=== PATIENT | male | born 2005 | race Caucasian/White ===

== ENCOUNTER 2024-01-08 02:48 | Emergency (ER) | payer BC, SELFPAY ==
[2024-01-08 02:56] VITALS: BP 132/81; PULSE 67; RESP 16; TEMP 36.7; O2SAT 98; BMI 32.7
--- NOTE | 2024-01-08 03:25 | ED_ITS ---
HPI - General Adult General Chief complaint: Laceration/Wound Stated complaint: left thumb lac Time Seen by Provider: 01/08/24 02:56 Source: patient Mode of arrival: ambulatory Limitations: no limitations History of Present Illness HPI narrative: 18-year-old male sliced his left thumb while using an [employer] knife to try to pry apart a small electronic object. Unknown last tetanus. Does not use blood thinners. No movement or sensory deficits in hand or wrist, no other areas of injury. Concerned that the slice does go diagonally through the nail. Bleeding has been minimal. Has not taken any medication to help with pain. States that his past medical history is benign, no major long-term health problems. No allergies. ROS is negative for other musculoskeletal, skin generalized or neurological changes. Related Data Home Medications ?Medication ?Instructions ?Recorded ?Confirmed No Known Home Medications 01/08/24 01/08/24 Allergies Allergy/AdvReac Type Severity Reaction Status Date / Time No Known Drug Allergies Allergy Verified 01/08/24 02:59 Exam Const: Vital Signs, click to edit/add: Vital Signs - 24 hr 01/08/24 02:56 Temperature 98.0 F Pulse Rate [Pulse Oximeter] 67 Respiratory Rate 16 Blood Pressure [Ri ght Upper Arm] 132/81 Pulse Oximetry 98 Oxygen Delivery Me thod Room Air Common normals: no apparent distress General appearance: cooperative, comfortable and well kempt HENMT: Common normals: normocephalic Head and scalp: normocephalic Face and sinus: normal facial exam Eye: General eye: normal appearance of both eyes Neck & C-Spine: General: normal visual inspection Resp: Common normals: normal respiratory effort Effort & inspection: able to speak in complete sentences Cardio: Other: Normal radial pulses on left. Regular rate and rhythm Extremity: Other: Both hands and wrist have normal range of motion. No movement or strength deficits. Thumb moves in all directions with good strength. No weakness. Normal sensation. There is a 2 cm long laceration from the lateral thumb distal phalanx running diagonally across the mid nail. Dermal depth with no underlying structures affected. Oozing minimally. Wound gapes only slightly on the skin portion, not the nail. Nail matrix not affected. Psych: Appearance: well kempt Activity/motor behavior: appropriate eye contact Mood and affect: euthymic mood Skin: Narrative: Other than the small laceration on the thumb, no other areas of injury. Course Course ED Course: Patient counseled on laceration and nail. Unfortunately there is not much that can be done for the nail, it will need to grow out. Counseled that he could benefit from a sales agent business services over the top of the nail as this will help reduce the chance of the nail catching on objects, clothing and snagging away. Recommended Steri-Strips to the skin. He was agreeable to this. Uncertain of last tetanus shot, will update this today. Procedure: Laceration repair: Dermabond was applied to the splint area of nail is a sales agent business services to help reduce splintering. No signs of underlying hematoma. Area of the skin was then cleansed with alcohol wipe and Mastisol supplied. Steri-Strip was then used to reinforce reapproximate skin edges with good cosmetic closure and hemostasis. Counseled on wound care. Unlikely to develop infection, alarm symptoms reviewed and discussed. Nail will need to grow out, proper care discussed. Will take several months. Okay to use Tylenol and/or ibuprofen as needed for discomfort. ED or primary care follow-up as needed only. Vital Signs Vital signs: Initial Vital Signs Temperature 98.0 F 01/08/24 02:56 Temperature Source Temporal Artery Scan 01/08/24 02:56 Pulse Rate 67 01/08/24 02:56 Pulse Rhythm Regular 01/08/24 02:56 Respiratory Rate 16 01/08/24 02:56 Blood Pressure 132/81 01/08/24 02:56 Blood Pressure Mean 98 01/08/24 02:56 Blood Pressure Position Supine 01/08/24 02:56 Pulse Oximetry 98 01/08/24 02:56 Oxygen Delivery Method Room Air 01/08/24 02:56 Vital Signs Temperature 98.0 F 01/08/24 02:56 Pulse Rate 67 01/08/24 02:56 Respiratory Rate 16 01/08/24 02:56 Blood Pressure 132/81 01/08/24 02:56 Pulse Oximetry 98 01/08/24 02:56 Oxygen Delivery Method Room Air 01/08/24 02:56 Temperature 98.0 F 01/08/24 02:56 Pulse Rate 67 01/08/24 02:56 Respiratory Rate 16 01/08/24 02:56 Blood Pressure 132/81 01/08/24 02:56 Pulse Oximetry 98 01/08/24 02:56 Oxygen Delivery Method Room Air 01/08/24 02:56 Discharge Plan Discharge Clinical Impression: Laceration Patient Disposition: Home, Self-Care Condition: Stable Instructions: Finger Laceration (ED) Additional Instructions: As we discussed, the laceration through the nail will have to grow out. This will take actually about 6 months to completely heal. I do fear that as the nail grows, the cut flap may catch on things and lead to tearing away of the nail. Because of this, please keep the nail tightly trimmed to the edge of the skin to reduce catching. It is okay to keep a layer of super glue or other sales agent business services over the cut as the nail grows out. This may help reduce tearing. You may lose the lower flap 1st. Ultimately, the nail will just have to grow out. You should have a new nail grow in without complication after several mon ths. The Steri-Strips will be completely dry in about an hour and after that they are able to get wet. Aggressive scrubbing may remove them to soon so try to be gentle. You do not need to apply any antibiotic ointment or other treatments over the strip. This will fall off and peel gradually on its own over the next few days. If they stay on for more than 5 days, you may gently peel them away. Your tetanus shot is updated today and will need to be renewed in 10 years. It is okay to use Tylenol 1000 mg every 6 hours and or ibuprofen 600 mg every 6 hours as needed for pain. Infection is unlikely but if you noticed increased pain, redness and swelling, you should have this evaluated in the clinic. Activity Level: No Restrictions Discharge Diet: Regular Prescriptions: No Action No Known Home Medications Stand Alone Forms: [facility] Info Instructions
== END 2024-01-08 03:50 | disposition home or self-care (01) ==
LOC: ED 03:27
PROVIDERS: Emergency Provider Family Medicine
DX: S61.012A Laceration without foreign body of left thumb without damage to nail, initial encounter (principal); W26.0XXA Contact with knife, initial encounter
CPT/HCPCS: 12001; 90471; 90714; 99283

== ENCOUNTER 2025-05-11 17:50 | Emergency (ER) | payer MEDICAID, SELFPAY ==
[2025-05-11] VITALS (13 sets, daily range): BP systolic 119–140; BP diastolic 62–95; PULSE 78–99; RESP 18–20; TEMP 36.7–37.2; O2SAT 94–99; BMI 37.5
--- NOTE | 2025-05-11 18:06 | ED.GENADULT ---
HPI - General Adult General Time Seen by Provider: 18:06 Date Seen: 05/11/25 Chief complaint: Flank Pain Stated complaint: pain in Testicle Time Seen by Provider: 05/11/25 18:06 Source: patient, RN notes reviewed and old records reviewed Mode of arrival: ambulatory Limitations: no limitations History of Present Illness HPI narrative: Russel is a very pleasant 19-year-old male previously healthy not currently on any medications who comes to the emergency room with sudden onset of testicular and left lower quadrant pain at approximately 5-530 p.m.. States he was just sitting down to place him cards. He has never felt this pain in the past. Has not had kidney stones in the past. This is associated with diaphoresis and feeling hot but no obvious fever. Has noted that his urine has looked a little rust colored but he denies any dysuria hematuria or urinary urgency. He has had vomiting associated with this. No diarrhea. No family history of kidney stones. Russel's accompanied by his dad is very supportive. Related Data Previous Rx's ?Medication ?Instructions ?Recorded tamsulosin 0.4 mg capsule (Flomax) 0.4 mg PO QHS #10 caps 05/11/25 Allergies Allergy/AdvReac Type Severity Reaction Status Date / Time No Known Drug Allergies Allergy Verified 01/08/24 02:59 Review of Systems Status of ROS: Reports: 10 or more systems reviewed and unremarkable except as noted in History and below Const: Denies: fever, chills or fatigue Eyes: Denies: change in vision ENMT: Denies: throat pain or nasal congestion Cardio: Reports: lightheadedness; Denies: chest pain or shortness of breath with exertion Resp: Denies: shortness of breath or cough GI: Reports: abdominal pain, nausea and vomiting; Denies: diarrhea or constipation : Denies: painful urination, urinary frequency, urinary urgency or blood in urine Musculo: Denies: back pain Endo: Denies: fatigue Exam Narrative: Exam Narrative: alert and oriented. Somewhat pale in appearance. Diaphoretic. External ears eyes nose clear. Heart with regular rate and rhythm and lungs are clear. Abdomen shows tenderness left lower quadrant. He has no CVA tenderness with percussion. He does have pain with palpation over the left testicle. No bulging in the groin. No unusual skin appearance. Moving all extremities. Const: Vital Signs, click to edit/add: Vital Signs - 24 hr 05/11/25 17:59 05/11/25 18:34 05/11/25 19:11 Temperature 98.9 F 98.0 F Pulse Rate 81 Pulse Rate [Pulse Oximeter] 95 Respiratory Rate 20 18 Blood Pressure 138/84 Blood Pressure [Ri ght Upper Arm] 133/95 H Pulse Oximetry 99 97 94 Oxygen Delivery Me thod Room Air 05/11/25 19:31 05/11/25 19:35 05/11/25 20:31 Temperature 98.0 F Pulse Rate 78 88 Pulse Rate [Pulse Oximeter] Respiratory Rate 18 18 Blood Pressure 140/83 H 127/79 Blood Pressure [Ri ght Upper Arm] Pulse Oximetry 96 98 Oxygen Delivery Me thod 05/11/25 21:01 05/11/25 21:32 05/11/25 22:02 Temperature Pulse Rate 86 89 83 Pulse Rate [Pulse Oximeter] Respiratory Rate 18 18 Blood Pressure 125/80 133/72 119/78 Blood Pressure [Ri ght Upper Arm] Pulse Oximetry 99 98 98 Oxygen Delivery Me thod 05/11/25 22:31 05/11/25 23:02 05/11/25 23:07 Temperature 98.0 F 98.0 F Pulse Rate 99 96 Pulse Rate [Pulse Oximeter] 85 Respiratory Rate 18 18 18 Blood Pressure 119/62 133/77 Blood Pressure [Ri ght Upper Arm] 125/74 Pulse Oximetry 96 97 97 Oxygen Delivery Me thod Room Air 05/11/25 23:38 Temperature 98.0 F Pulse Rate Pulse Rate [Pulse Oximeter] 85 Respiratory Rate 18 Blood Pressure Blood Pressure [Ri ght Upper Arm] 125/74 Pulse Oximetry Oxygen Delivery Me thod Documenting provider has reviewed patient's vital signs: yes Course Course ED Course: Differential diagnosis includes but is not limited to kidney stone, testicular torsion, internal hernia, diverticulitis unlikely given the sudden onset but should be considered. Must also consider vascular dissection and abnormalities. Given the times sensitive nature of testicular torsion for urological consultation will start with the ultrasound of the testicle. I have contacted Radiology. Patient will also receive Toradol 15 mg IV, Zofran 4 mg IV and normal saline 500 mL IV. Reevaluation(s) Reevaluation #1: Edgard is continued to have discomfort and thus have ordered 4 mg of IV morphine. Reevaluation #2: Patient noted to have continued discomfort he is given Ativan 0.5 mg. Addendum contacted that he is retching again and he is given Reglan 10 mg IV piggyback which greatly helps. Ultrasound of the left testicle normal. Will have a CT of chest abdomen and pelvis given unusual history. Certainly this still could be a kidney stone but would want further examination of the aorta, renal artery and abdomen. Vital Signs Vital signs: Initial Vital Signs Temperature 98.9 F 05/11/25 17:59 Temperature Source Temporal Artery Scan 05/11/25 17:59 Pulse Rate 95 05/11/25 17:59 Respiratory Rate 20 05/11/25 17:59 Blood Pressure 133/95 H 05/11/25 17:59 Blood Pressure Mean 107 H 05/11/25 17:59 Pulse Oximetry 99 05/11/25 17:59 Oxygen Delivery Method Room Air 05/11/25 17:59 Vital Signs Temperature 98.9 F 05/11/25 17:59 Pulse Rate 95 05/11/25 17:59 Respiratory Rate 20 05/11/25 17:59 Blood Pressure 133/95 H 05/11/25 17:59 Pulse Oximetry 99 05/11/25 17:59 Oxygen Delivery Method Room Air 05/11/25 17:59 Temperature 98.0 F 05/11/25 23:38 Pulse Rate 85 05/11/25 23:38 Respiratory Rate 18 05/11/25 23:38 Blood Pressure 125/74 05/11/25 23:38 Pulse Oximetry 97 05/11/25 23:07 Oxygen Delivery Method Room Air 05/11/25 23:07 Medications Administered Medications: Discontinued Medications Generic Name Dose Route Start Last Admin Trade Name Freq PRN Reason Stop Dose Admin Sodium Chloride 500 mls @ 500 mls/hr 05/11/25 18:07 05/11/25 19:04 0.9 % Sodium Chloride 500 Ml IV 05/11/25 19:06 Infused .Q1H SURESH Infusion Diphenhydramine HCl 25 mg/ 100.5 mls @ 301.5 mls/hr 05/11/25 19:59 05/11/25 20:22 Sodium Chloride IVPB 05/11/25 20:00 Infused ONCE ONE Infusion Metoclopramide HCl 10 mg/ 102 mls @ 306 mls/hr 05/11/25 19:59 05/11/25 20:22 Sodium Chloride IVPB 05/11/25 20:00 Infused ONCE ONE Infusion Ketorolac Tromethamine 15 mg 05/11/25 18:07 05/11/25 18:22 Ketorolac 15 Mg/Ml Inj IVP 05/11/25 18:08 15 mg ONCE ONE Administration Lorazepam 0.5 mg 05/11/25 18:54 05/11/25 19:00 Lorazepam 2 Mg/Ml Inj IVP 05/11/25 18:55 0.5 mg ONCE ONE Administration Morphine Sulfate 4 mg 05/11/25 18:28 05/11/25 18:31 Morphine 4 Mg/Ml Inj IVP 05/11/25 18:29 4 mg ONCE ONE Administration Ondansetron HCl 4 mg 05/11/25 18:07 05/11/25 18:22 Ondansetron 2 Mg/Ml Inj IVP 05/11/25 18:08 4 mg ONCE ONE Administration Medical Decision Making MDM Narrative Medical decision making narrative: 1. Nephrolithiasis-4 x 3 mm stone noted in the proximal left ureter. Patient much more comfortable but did need many medications including Toradol, Zofran, morphine, Ativan, Reglan in order to get comfortable. He has been resting here at this time after his CT. Will discharge him home he will need to strain his urine. He will use Toradol 10 mg p.o. t.i.d. p.r.n. 20. With no refills from [facility] for pain. Will also give him [place] 5/325 1-2 tabs p.o. q.4-6 hours p.r.n. pain not relieved by Toradol 20. With no refills by [facility]. Finally will give him Zofran 4 mg ODT T q.8 hours p.r.n. nausea 10. With no refills. Flomax 0.4 mg given here in the ED tonight. A prescription for ten more days sent to his pharmacy in the hopes that this medicine would help expedite the passage of this stone. At this time patient has no evidence of sepsis, fever. 2. Left testicular pain-improved at this time. No evidence of torsion or abnormality noted on the ultrasound. 3. Disposition-home at this time. Did discuss discharge instructions with both Russel and his dad. Would have them return for worsening symptoms. For ongoing pain that is relieved by medication but continuing would have them follow-up with their primary MD in order to help them with urological consultation. Return for fever, vomiting, worsening symptoms and as needed. Medical Records Medical records reviewed: Yes I reviewed the patient's medical records Imaging Data Scrotal ultrasound: Attestation: I have reviewed the pertinent imaging results. My impression: Left-sided ureteral stone Radiologist's impression: Cardiovascular structures: Heart size is normal. Thoracic aorta and main pulmonary artery are normal in caliber. No filling defects in the central pulmonary vasculature. Mediastinum and bradley: No mass or adenopathy. Small amount of residual thymic tissue which is age compatible. Small hiatal hernia. Lungs and pleura: Lungs and pleural spaces are clear. No suspicious nodules, infiltrates, or effusions. Chest wall and axilla: No mass or adenopathy. Bones: No suspicious bone lesions. Unremarkable for age. ABDOMEN AND PELVIS: Liver: Non cirrhotic morphology. No suspicious mass.. Gallbladder and bile ducts: Unremarkable. Pancreas: Unremarkable. Spleen: Unremarkable. Adrenal glands: Unremarkable. Kidneys: Mild left-sided hydroureteronephrosis with obstructive nephrolith in the proximal ureter measuring 4 x 3 mm (7/95, 8/68). No right-sided hydronephrosis. No perinephric fat stranding. No suspicious mass. No additional nephrolithiasis bilaterally. GI tract: Stomach is decompressed, limiting evaluation, but appears grossly normal. Small and large bowel is normal in caliber without obstruction. Normal appendix (7/112). No pneumatosis, pneumoperitoneum or portal venous gas. Vascular structures: Unremarkable. Lymph nodes: Unremarkable. Peritoneum/Retroperitoneum/Abdominal Wall: Tiny fat containing umbilical hernia. No free air or significant free fluid. Pelvic Organs: Unremarkable. Bones and superficial soft tissues: No suspicious bone lesions. Unremarkable for age. IMPRESSION: 1. Mild left-sided hydroureteronephrosis with obstructive nephrolith in the proximal ureter measuring 4 x 3 mm. 2. No acute pathology in the chest. Discharge Plan Discharge Clinical Impression: Left nephrolithiasis, Colic, ureteral, Vomiting Patient Disposition: Home, Self-Care Condition: Improved Additional Instructions: Toradol may be used for discomfort 1 tablet every 6-8 hours as needed. For pain not relieved by Toradol you may use [place] which is a combination medication of for a narcotic called hydrocodone and Tylenol. If using this medicine you should take a stool softener as it causes constipation. You should not take any additional Tylenol. Zofran is a medication that melt on the tongue and is used for nausea. Flomax is a soft muscle relaxer and is thought to help speed the passage of kidney stones. You received your 1st dose tonight. I have sent this medication to the pharmacy. All 3 of the previous medications were sent to our [employer] machine. Strain your urine. If you see a small stone and your feeling better, you have passed the stone. If, however, you develop pain not relieved by the above medications, you start vomiting and will not stop, you develop a fever you will need to seek medical attention. Otherwise if the pain is controlled but you have ongoing pain please follow-up with your primary MD this week so that they can arrange consultation with a urologist. Prescriptions: New tamsulosin [Flomax] 0.4 mg capsule 0.4 mg PO QHS Qty: 10 1RF Follow Up/Referrals: Provider,Not a Local [Primary Care Provider, Family Practice] Stand Alone Forms: [facility] Info Instructions
--- NOTE | 2025-05-11 18:13 | CRLHL7_ITS ---
For Patients: As a result of the Century Cures Act, medical imaging exams and procedure reports are released immediately into your electronic medical record. You may view this report before your referring provider. If you have questions, please contact your health care provider. INDICATION: Left testicular pain. COMPARISON: None. TECHNIQUE: Dukes scale imaging was performed of the scrotum. Color Doppler and spectral Doppler analysis was performed of the testes. FINDINGS: Testes: The right testis measures 6.5 x 2.5 x 5.1 cm and the left testis measures 6.1 x 2.8 x 3.5 cm. The testes demonstrate normal arterial and venous blood flow on color Doppler and spectral Doppler analysis. The testes have uniform echogenicity without evidence of a suspicious mass or area of inflammation. Epididymis: The epididymis appears normal bilaterally. No hypervascularity. Other: No significant hydrocele or varicocele. IMPRESSION: Unremarkable exam. No evidence of torsion or inflammation. Dictated by Rosalind Dunlap MD @ 05/11/2025 7:23:31 PM (Electronically Signed)
[2025-05-11] MEDS: ONDANSETRON 2 MG/ML inj 4 MG IVP (18:22)
[2025-05-11] MEDS: 0.9 % SODIUM CHLORIDE 500 ML 500 ML IV (18:22)
[2025-05-11] MEDS: MORPHINE 4 MG/ML INJ IVP (18:31)
--- NOTE | 2025-05-11 19:12 | CRLHL7_ITS ---
For Patients: As a result of the Century Cures Act, medical imaging exams and procedure reports are released immediately into your electronic medical record. You may view this report before your referring provider. If you have questions, please contact your health care provider. INDICATION: LLQ ABD PAIN, TESTICULAR PAIN. COUGH TECHNIQUE: CT chest, abdomen and pelvis acquired 143 cc Isovue 370 IV contrast. COMPARISON: Same day testicular ultrasound FINDINGS: CHEST: Cardiovascular structures: Heart size is normal. Thoracic aorta and main pulmonary artery are normal in caliber. No filling defects in the central pulmonary vasculature. Mediastinum and bradley: No mass or adenopathy. Small amount of residual thymic tissue which is age compatible. Small hiatal hernia. Lungs and pleura: Lungs and pleural spaces are clear. No suspicious nodules, infiltrates, or effusions. Chest wall and axilla: No mass or adenopathy. Bones: No suspicious bone lesions. Unremarkable for age. ABDOMEN AND PELVIS: Liver: Non cirrhotic morphology. No suspicious mass.. Gallbladder and bile ducts: Unremarkable. Pancreas: Unremarkable. Spleen: Unremarkable. Adrenal glands: Unremarkable. Kidneys: Mild left-sided hydroureteronephrosis with obstructive nephrolith in the proximal ureter measuring 4 x 3 mm (7/95, 8/). No right-sided hydronephrosis. No perinephric fat stranding. No suspicious mass. No additional nephrolithiasis bilaterally. GI tract: Stomach is decompressed, limiting evaluation, but appears grossly normal. Small and large bowel is normal in caliber without obstruction. Normal appendix (/112). No pneumatosis, pneumoperitoneum or portal venous gas. Vascular structures: Unremarkable. Lymph nodes: Unremarkable. Peritoneum/Retroperitoneum/Abdominal Wall: Tiny fat containing umbilical hernia. No free air or significant free fluid. Pelvic Organs: Unremarkable. Bones and superficial soft tissues: No suspicious bone lesions. Unremarkable for age. IMPRESSION: 1. Mild left-sided hydroureteronephrosis with obstructive nephrolith in the proximal ureter measuring 4 x 3 mm. 2. No acute pathology in the chest. Please note that all CT scans at this facility use dose modulation, iterative reconstruction, and/or weight-based dosing when appropriate to reduce radiation dose to as low as reasonably achievable. Dictated by Adriana Pavon MD @ 05/11/2025 8:34:50 PM (Electronically Signed)
[2025-05-11] MEDS: METOCLOPRAMIDE HCL 10 MG in 0.9 % SODIUM CHLORIDE 100 ml 100 ML 306 MG IVPB (20:04)
[2025-05-11] MEDS: diphenhydrAMINE 25 MG in 0.9 % SODIUM CHLORIDE 100 ml 100 ML 301.5 MG IVPB (20:04)
== END 2025-05-11 23:38 | disposition home or self-care (01) ==
PROVIDERS: Emergency Provider Family Medicine
DX: N20.2 Calculus of kidney with calculus of ureter (principal)
CPT/HCPCS: 71260; 74177; 76870; 81001; 93976; 94761; 96365; 96366; 96375; 99284; 99285; J1200; J1885; J2060; J2270; J2405; J2765; J7030; Q9967

== ENCOUNTER 2025-05-12 13:03 | Emergency (ER) | payer MEDICAID, SELFPAY ==
[2025-05-12] VITALS (14 sets, daily range): BP systolic 130–146; BP diastolic 88–96; PULSE 87–108; RESP 16–18; TEMP 36.7; O2SAT 93–99; BMI 37.4
--- NOTE | 2025-05-12 13:05 | ED_ITS ---
HPI - General Adult General Date Seen: 05/12/25 Chief complaint: Flank Pain Stated complaint: Pain killers not helping with kidney stones Time Seen by Provider: 05/12/25 13:04 History of Present Illness HPI narrative: 19-year-old gentleman returning to the ER today with flank pain. His prescription pain medications are not helping with his kidney stone. In review of his medical record he was seen yesterday on 05/11/[address] Silva here in the ER. He had sudden onset of left lower quadrant and left testicular pain at about 5:30 p.m. yesterday. He was afebrile. Blood pressure was 133/95. Oxygen was normal. Workup included a CT scan that showed mild left hydronephrosis with obstructive nephrolith in the proximal ureter measuring 4 x 3 mm. Prescribed Flomax, Toradol, Zofran, Valentine. This morning he started having more pain in his left flank and left lower quadrant (not as much pain in his testicle). He was at work and started to get dizzy and nauseous because of the pain. He took a Toradol and Valentine for pain but they really did not help at all. He took a Zofran for the nausea and that has improved. Since the oral pain killer just not helping with the pain, he came back to the ER He has not had any discharge urea, urgency, hematuria. No fever chills. No right-sided abdominal pain. No testicular pain or swelling. He has not noticed any bruising or rash or blisters on his side He is not on any other medications. Related Data Previous Rx's ?Medication ?Instructions ?Recorded tamsulosin 0.4 mg capsule (Flomax) 0.4 mg PO QHS #10 c aps 05/11/25 oxycodone-acetaminophen 5 mg-325 1 - 2 tab PO Q4-6H KS N pain #20 05/12/25 mg tablet (Percocet) tabs Allergies Allergy/AdvReac Type Severity Reaction Status Date / Time No Known Drug Allergies Allergy Verified 01/08/24 02:59 Exam Narrative: Exam Narrative: Constitutional: Appears well-developed and well-nourished. Alert. Conversant but uncomfortable and holding his hand against his left flank and sometimes lying sideways because of pain. Non toxic. HENT: Head: Atraumatic. Nose: Nose normal. Mouth/Throat: Oral mucosa is clear and moist. no trismus. Eyes: Conjunctivae normal. EOM normal. Pupils equal, round, and reactive to light. No scleral icterus. Neck: Normal range of motion. Neck supple. No tracheal deviation present. Cardiovascular: Normal rate, regular rhythm. No gallop. No friction rub. No murmur heard. Pulmonary/Chest: Effort normal. No stridor. No respiratory distress. No wheezes. No rales. No rhonchi . No ribcage tenderness. Abdominal: Soft. Bowel sounds normal. No distension. No mass. left upper quadrant, left lower quadrant, left CVA tenderness. No rebound. No guarding. No right-sided tenderness. Musculoskeletal: RUE: Normal range of motion. No tenderness. No deformity LUE: Normal range of motion. No tenderness. No deformity RLE: Normal range of motion. No edema. No tenderness. No deformity LLE: Normal range of motion. No edema. No tenderness. No deformity Neurological: Alert and oriented to person, place, and time. Normal strength. CN II-VII intact. No sensory deficit. GCS eye subscore is 4. GCS verbal subscore is 5. GCS motor subscore is 6. Normal coordination Skin: Skin is warm and dry. No rash noted. No pallor. Normal capillary refill. Psychiatric: Normal mood. Normal affect, allowing for pain. Const: Vital Signs, click to edit/add: Vital Signs - 24 hr 05/12/25 13:15 05/12/25 13:45 05/12/25 14:03 Temperature 98.1 F Pulse Rate 87 89 Pulse Rate [Pulse Oximeter] 91 Respiratory Rate 18 Blood Pressure Blood Pressure [Ri t Upper Arm] 146/88 H Pulse Oximetry 96 93 96 Oxygen Delivery Me thod Room Air 05/12/25 14:15 05/12/25 14:30 05/12/25 14:45 Temperature Pulse Rate 90 104 H 98 Pulse Rate [Pulse Oximeter] Respiratory Rate 16 Blood Pressure Blood Pressure [Ri t Upper Arm] Pulse Oximetry 97 96 99 Oxygen Delivery Me thod 05/12/25 15:00 05/12/25 15:15 05/12/25 15:30 Temperature Pulse Rate 97 108 H 103 H Pulse Rate [Pulse Oximeter] Respiratory Rate 16 Blood Pressure Blood Pressure [Ri ght Upper Arm] Pulse Oximetry 96 96 96 Oxygen Delivery Me thod 05/12/25 15:45 05/12/25 15:55 05/12/25 16:00 Temperature Pulse Rate 108 H 108 H 107 H Pulse Rate [Pulse Oximeter] Respiratory Rate 16 Blood Pressure 130/96 H Blood Pressure [Ri [facility] Upper Arm] Pulse Oximetry 95 99 98 Oxygen Delivery Me thod 05/12/25 16:15 05/12/25 16:30 Temperature Pulse Rate 103 H 94 Pulse Rate [Pulse Oximeter] Respiratory Rate Blood Pressure Blood Pressure [[facility] Upper Arm] Pulse Oximetry 96 97 Oxygen Delivery Me thod Course Vital Signs Vital signs: Initial Vital Signs Temperature 98.1 F 05/12/25 13:15 Temperature Source Temporal Artery Scan 05/12/25 13:15 Pulse Rate 91 05/12/25 13:15 Respiratory Rate 18 05/12/25 13:15 Blood Pressure 146/88 H 05/12/25 13:15 Blood Pressure Mean 107 H 05/12/25 13:15 Blood Pressure Position Sitting 05/12/25 13:15 Pulse Oximetry 96 05/12/25 13:15 Oxygen Delivery Method Room Air 05/12/25 13:15 Vital Signs Temperature 98.1 F 05/12/25 13:15 Pulse Rate 91 05/12/25 13:15 Respiratory Rate 18 05/12/25 13:15 Blood Pressure 146/88 H 05/12/25 13:15 Pulse Oximetry 96 05/12/25 13:15 Oxygen Delivery Method Room Air 05/12/25 13:15 Temperature 98.1 F 05/12/25 13:15 Pulse Rate 94 05/12/25 16:30 Respiratory Rate 16 05/12/25 15:55 Blood Pressure 130/96 H 05/12/25 15:55 Pulse Oximetry 97 05/12/25 16:30 Oxygen Delivery Method Room Air 05/12/25 13:15 Medications Administered Medications: Discontinued Medications Generic Name Dose Route Start Last Admin Trade Name Freq PRN Reason Stop Dose Admin Hydromorphone HCl 0.5 mg 05/12/25 13:25 05/12/25 13:39 Hydromorphone 0.5 Mg/0.5 Ml Inj IVP 0.5 mg Q1H PRN Administration Pain Hydromorphone HCl 0.5 mg 05/12/25 15:42 05/12/25 15:54 Hydromorphone 0.5 Mg/0.5 Ml Inj IVP 0.5 mg Q1H PRN Administration Pain Ondansetron HCl 4 mg 05/12/25 13:25 05/12/25 13:39 Ondansetron 2 Mg/Ml Inj IVP 05/12/25 13:26 4 mg ONCE ONE Administration Oxycodone HCl 5 mg 05/12/25 15:42 05/12/25 15:54 Oxycodone 5 Mg Tablet PO 05/12/25 15:43 5 mg ONCE ONE Administration Medical Decision Making MDM Narrative Medical decision making narrative: This patient presents with left flank and left lower quadrant abdominal pain. Differential Diagnosis considered includes: Ureterolithiasis, UTI, pyelonephritis, AAA, colitis, diverticulitis, among others. At this point, the evaluation indicates that ureterolithiasis is the cause of the patient's symptoms. There are no signs that this is an infected stone. He does have leukocytosis but no evidence for pyuria or bacteriuria on urinalysis. Kidney function is normal. CT imaging yesterday confirm the presence of a 3 mm stone. He was not well controlled with Valentine yesterday but pain is much more well controlled today with Dilaudid and oxycodone given here in the ER. The patient is hemodynamically stable in ED. I think the patient is safe for discharge. The plan is discharge to home with recheck by primary care physician or urology.They will return to the ED right away if symptoms worsen (e.g Return immediately for fevers greater than 102, increasing pain, other new symptoms develop). Ureterolithiasis precautions for home. Prescriptions for pain control, Percocet. He already has Zofran nausea control, and flomax. The patient's questions were answered. Lab Data Labs: Lab Results 05/12/25 05/12/25 Range/Units 13:25 13:40 WBC 14.57 H (4.50-11.00) K/uL RBC 5.02 (4.30-5.90) m/uL Hgb 14.8 (13.5-17.5) gm/dL Hct 44.6 (37.0-53.0) % MCV 89 (80-100) fL MCH 30 (26-34) pg MCHC 33 (32-36) gm/dL RDW Coeff of Neil 12.6 (11.5-15.5) % Plt Count 255 (140-440) K/uL Neut % (Auto) 77.0 H (42.0-72.0) % Lymph % (Auto) 14.8 L (20-44) % Love % (Auto) 7.3 (0.0-11.0) % Eos % (Auto) 0.5 (0.0-7.0) % Baso % (Auto) 0.2 (0.0-3.0) % Neut # (Auto) 11.20 H (1.7-7.0) K/uL Lymph # (Auto) 2.20 (0.90-2.90) K/uL Love # (Auto) 1.10 H (0.00-0.90) K/UL Eos # (Auto) 0.10 (0.00-0.50) K/uL Baso # (Auto) 0.00 (0.00-0.30) K/uL Abs Immat Gran (auto) 0.00 (0.00-0.30) K/uL Imm/Tot Granulo (auto) 0.2 % Sodium 140 (135-149) mmol/L Potassium 3.6 (3.6-5.1) mmol/L Chloride 105 (96-114) mmol/L Carbon Dioxide 27 (20-32) mmol/L Anion Gap 8 (7-15) mEq/L BUN 11 (5-24) mg/dL Creatinine 1.0 (0.5-1.5) mg/dL Estimated Creat Clear 135.86 Estimated GFR 110 ml/min Glucose 106 (60-115) mg/dL Calcium 9.4 (8.4-10.6) mg/dL Urine Color Brown A (Yellow) Urine Appearance Cloudy A (Clear) Urine pH 6.0 (5.0-8.5) Ur Specific [place] 1.025 (1.000-1.030) Urine Protein 2+ A (Negative) Urine Glucose (UA) Negative (Negative) Urine Ketones Trace A (Negative) Urine Blood 3+ A (Negative) Urine Nitrite Negative (Negative) Urine Bilirubin 1+ A (Negative) Urine Urobilinogen 0.2 (0.2-1.0) Ur Leukocyte Esterase Negative (Negative) Urine RBC >100 A (0-2) Urine WBC 2-5 (0-5) Ur Squamous Epith Cells Few (None-Few) Other Sediment MODERATE RCB CLUMPS (None) Urine Bacteria Few A (None) Urine Mucus Many A (None) Discharge Plan Discharge Clinical Impression: Kidney stone on left side Patient Disposition: Home, Self-Care Condition: Stable Instructions: Kidney Stones (ED) Additional Instructions: As we discussed, please come back to the ER right away if you have any problems- especially have worsening or severe uncontrolled pain, fever or chills, uncontrolled vomiting. To help manage your pain from the kidney stone you can take the following steps. Continue to drink adequate amounts of fluids so that your producing normal amounts of urine in the ear urine is fairly clear or light yellow. You can use Tylenol or NSAIDs (either ibuprofen or Toradol, not both) for pain control. If the initial pain medications are not strong enough , use the prescription pain killer. We will give you a prescription for Percocet which is stronger than Valentine. Stop taking Valentine and take Percocet instead. Do not take them both together. Be careful with prescription pain killers because they can cause side effects such as dizziness, drowsiness, constipation, and can be addictive. It typically takes a few days for kidney stone to pass. If you not feeling dramatically better within 3-5 days, please recheck with your regular doctor or with a urologist. Unfortunately, there is not a urologist here in [place]. You can call [place] [facility], or [facility], or any urologist who is ?in network? with your insurance. Prescriptions: New oxycodone-acetaminophen [Percocet] 5-325 mg tablet 1 - 2 tab PO Q4-6H PRN (Reason: pain) Qty: 20 0RF No Action tamsulosin [Flomax] 0.4 mg capsule 0.4 mg PO QHS Qty: 10 1RF Follow Up/Referrals: Provider,Not a Local [Primary Care Provider, Family Practice] Stand Alone Forms: Work/School Release, [email or web address] Info Instructions
[2025-05-12] MEDS: ONDANSETRON 2 MG/ML inj 4 MG IVP (13:39)
[2025-05-12 13:48] LABS: Hematocrit* 44.6 % (37.0-53.0); Hemoglobin* 14.8 gm/dL (13.5-17.5); Immature Granulocytes Pct Auto 0.2 %; Mean Corpuscular HGB Conc 33 gm/dL (32-36); Mean Corpuscular Hemoglobin 30 pg (26-34); Mean Corpuscular Volume 89 fL (80-100); RDW Coefficient of Variation % 12.6 % (11.5-15.5); Red Blood Count* 5.02 m/uL (4.30-5.90); White Blood Count* 14.57 K/uL (4.50-11.00)
[2025-05-12 13:50] LABS: Immature Granulocytes Abs Auto 0.00 K/uL (0.00-0.30); Lymphocytes Absolute Auto 2.20 K/uL (0.90-2.90)
[2025-05-12 13:51] LABS: Slide Review Reflex No
[2025-05-12 14:03] LABS: Chloride* 105 mmol/L (96-114)
[2025-05-12 14:04] LABS: Potassium* 3.6 mmol/L (3.6-5.1); Sodium* 140 mmol/L (135-149)
[2025-05-12 14:07] LABS: Anion Gap 8 mEq/L (7-15); Blood Urea Nitrogen* 11 mg/dL (5-24); Calcium* 9.4 mg/dL (8.4-10.6); Carbon Dioxide* 27 mmol/L (20-32); Creatinine* 1.0 mg/dL (0.5-1.5); Est. Creatinine Clearance* 135.86; Estimated Glomerular Filt Rate 110 ml/min; Glucose* 106 mg/dL (60-115)
[2025-05-12 14:08] LABS: Appearance Urine Cloudy (Clear)
== END 2025-05-12 17:20 | disposition home or self-care (01) ==
PROVIDERS: Emergency Provider Emergency Medicine
DX: N20.0 Calculus of kidney (principal)
CPT/HCPCS: 36415; 80048; 81001; 85025; 87086; 94761; 96374; 96375; 96376; 99282; 99284; A9270; J1171; J2405

== ENCOUNTER 2025-05-21 20:33 | Emergency (ER) | payer MEDICAID, SELFPAY ==
--- OUTSIDE RECORDS SUMMARY | 2025-05-16 10:25 | XMS_ITS | Encounter Summary ---
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 Name Role Phone None Reported, Pcp Primary Care Provider Unavail able Reason for Referral * Outpatient (Routine) - Closed Specialty Diagnoses / Procedures Referred By Jessica gama Referred To Contact Urology Diagnoses Ureterolithiasis Pain Flank Luke Poole P.A.-CEulogio [address] [place] [phone] Phone: tel: fax: [facility] Referral ID Status Reason Start Date Expiration Date Visits Re quested Visits Authorized [id number] Closed 05/16/2025 11/15/2026 1 1 [facility] Reason for Visit * Reason Comments Flank Pain Encounter Details Date Type Department Care Team (Latest Contact Info) Description 05/16/2025 10:25 AM [facility] - 05/16/2025 3:44 PM [facility] Emergency [facility] [address] [place] [phone] Luke Poole, JesicaAEulogio-CEulogio [address] [place] [phone] Ureterolithiasis (Primary Dx); Pain Flank Discharge Disposition: Home or Self Care Social History Tobacco Use Types Packs/Day Years Used Date Smoking Tobacco: Never Tobacco Cessation:Counseling Given: Not Answered Alcohol Use Standard Drinks/Week Comments Never 0 (1 standard drink = 0.6 oz pur e alcohol) Sex and Gender Information Value Date Recorded Sex Assigned at Male 05/19/2025 1:42 PM [facility] Legal Sex Male 10:23 AM [facility] [employer] [facility] Gender Identity Male 05/19/2025 1:42 PM [facility] Sexual Orientation Bisexual 05/19/2025 1: 42 PM [facility] [employer] [facility] documented as of this encounter Last Filed Vital Signs Vital Sign Reading Time Taken Comments Blood Pressure 150/89 05/16/2025 3:42 PM [facility] [employer] [facility] Pulse 75 05/16/2025 3:42 PM [facility] [facility] [facility] Temperature 36.8 C (98.2 F) 05/16/2025 3:42 PM [facility] [employer] [facility] Respiratory Rate 16 05/16/2025 3:42 PM [facility] [employer] [facility] Oxygen Saturation 98% 05/16/2025 3:42 PM [facility] [employer] [facility] Inhaled Oxygen Concentration - - Weight 131 kg (288 lb 12.8 oz) 05/16/2025 10:27 AM [facility] [employer] [facility] Height 188 cm (6' 2) 05/16/2025 10:27 AM [facility] [facility] [employer] [facility] Body Mass Index 37.08 05/16/2025 10:27 AM [facility] [employer] [facility] documented in this encounter Discharge Instructions * Discharge Instructions* Luke Poole P.A.-C. - 05/16/2025 2:02 PM [facility] [employer] [facility] Tylenol 1000 mg every 8 hours as needed for pain. Ibuprofen 600 mg every 8 hours as needed for pain. Please take with food. Do not exceed 3000 mg of Tylenol daily. Do not exceed 1800 mg of Ibuprofen daily. Take Flomax as directed. Use your kidney stone collection kit Referral placed to stone clinic Use oxycodone for breakthrough pain when bnab-irs-wylhiin pain medicines fail Do not drive on oxycodone as it causes drowsiness. Oxycodone can also cause falls and constipation. Take a stool softenerif you use the oxycodone. Please return to the emergency department for further evaluation if you develop new or worsening symptoms. Specifically if you develop fevers or progressively worsening abdominal pain or change in character of your abdominal pain. [facility] * Attachments The following attachments cannot be sent through Care Everywhere. * Kidney Stones Kmhn-hn-Kzoe (Maldivian) documented in this encounter Medications at Time of Discharge oxyCODONE (Roxicodone) 5 mg immediate release tabletIndications :Acute Pain Take 1 tablet (5 mg total) by mouth every 6 (six) hours as needed for pain for up to 3 days Indication: Acute Pain. 10 tablet 05/16/2025 05/19/2025 documented as of this encounter ED Notes * Luke Poole P.A.-C. - 05/16/2025 1:52 PM CST The patient verbally consented to an audio recording of their visit to assist with the completion of documentation. SUBJECTIVE CHIEF COMPLAINT/REASON FOR VISIT Flank Pain HISTORY OF PRESENT ILLNESS History of Present Illness Edgard Hernandez is a 19 year old male who presents with worsening pain due to a kidneystone. He was initially seen at [place] [facility] on Sunday, where he was diagnosed with a kidney stone. The pain began on Sunday, prompting his visit to the ER. He was prescribed Flomax, ondansetron (Zofran), Toradol, and [place]. However, Toradol did not alleviate his pain, and [place] provided relief for only about an hour and a half. On Sunday, he returned to the ER and was prescribed Percocet, which managed his pain until today, when he experienced a spike in pain. He took two Percocets at 4 AM, as per the bottle's instructions, but they did not relieve his pain. He has not taken any other medications since then, except for an IV dose of Toradol, which provided some relief. He takes Flomax at night and has not taken any Tylenol today besides the Percocets at 4AM. A recent CT scan was performed to evaluate his kidney stone. He mentions that the previous stone was noted to be 4 mm, and there is uncertainty if this is a new stone or the same one. He has been provided with a urine strainer to monitor for passage of the stone. No symptoms of a urinary tract infection, such as pain with urination, burning, frequency, or urgency, and no fever. He is concerned about his ability to work due to the pain. REVIEW OF SYSTEMS Genitourinary: Positive for flank pain. OBJECTIVE Initial Vitals Temperature 05/16/25 1031 36.8 ??C Pulse Rate 05/16/25 1027 64 Heart Rate -- Resp Rate 05/16/25 1027 18 Blood Pressure 05/16/25 1027 144/88 SpO2 05/16/25 1027 99 % Pain Score 05/16/25 1028 7 PHYSICAL EXAMINATION Constitutional: Nursing note and vitals reviewed. He appears not lethargic. No distress. HENT: Head: Normocephalic and atraumatic. No signs of injury. Eyes: Conjunctivae are normal. Cardiovascular: Normal rate. Capillary refill: takes less than 3 seconds Pulmonary/Chest: Effort normal. No tachypnea. No respiratory distress. Abdominal: Soft. exhibits no distension and no mass. There is no abdominal tenderness. There is no rebound and no guarding. Musculoskeletal: General: No deformity. Neurological: Alert and oriented to person, place, and time. He is not disoriented. Coordination normal. Skin: Skin is warm, dry and normal color. He is not diaphoretic. ASSESSMENT/PLAN Medical Decision Making 19-year-old male with a recent diagnosis of left ureteral stone presented with worsening left-sidedpain refractory to outpatient analgesics. He has no urinary tract infection symptoms or fever, and his exam and labs revealed leukocytosis without evidence of urinary infection. CT confirmed a 2 mm obstructing left ureteral calculus. Urine microscopy was negative for white blood cells. Differential diagnosis includes, but is not limited to: - Obstructing Left Ureteral Calculus (Nephrolithiasis): Confirmed by CT with associated acute pain and leukocytosis, but no evidence of infection on urinalysis or urine microscopy. - Infected Ureteral Stone (Urosepsis): Considered due to leukocytosis, but ruled out based on absence of urinary symptoms, fever or systemic signs of infection, and negative urine microscopy for white blood cells. Obstructing Left Ureteral Calculus with Acute Pain - Administered IV Dilaudid for acute pain relief. - Prescribed oxycodone tablets for pain management without Tylenol to allow maximum safe dosing of Tylenol and ibuprofen. - Instructed to take scheduled Tylenol and ibuprofen every 8 hours for pain management. - Continued Flomax as previously prescribed. - Instructed to use urine strainer to confirm passage of the stone. - Placed referral to stone clinic for follow-up and potential further intervention if the stone does not pass. - Discharged home with instructions and outpatient follow-up. ED Course as of 05/16/25 1517 Sat May 16, 2025 1509 Pain significantly improved after medication management. Patient feels slight feeling like he is retaining urine. Will do a bladder scan postvoid to ensure this is not happening and he will discharge with outpatient follow up. Referral placed to stone clinic. Strict return precautions discussed. I encourage follow up with their primary care provider as indicated. I also encourage to return to the emergency department for worsening symptoms or any other concerns they feel requires further evaluation. This plan of discharge and follow-up included discussion of all test results in detail withopportunity to ask questions during discharge process. At this time there are no further questions regarding this plan and discussion. I will discharge them home in stable condition. Final Diagnoses: as of 05/16/25 1517 Ureterolithiasis Pain Flank Luke Poole P.A.-C. 05/16/25 1517 [facility] * Keira Ruiz R.N. - 05/16/2025 10:44 AM CST Pt presents to the ED with L flank pain. Pt was seen at an outside hospital on Sunday and diagnosedwith a 4mm kidney stone. Pt states he was given a prescription for Flomax and Percocet but the painhas not improved. Last does of Percocet 0400 today. Pain 01/15. Denies N/V. Keira Ruiz R.N. 05/16/25 1048 [facility] documented in this encounter Plan of Treatment Upcoming Encounters Date Type Department Care Team (Late st Contact Info) Description 06/19/2025 3:30 PM [facility] Appointment Department of Radiology, [facility], in [place], [place] [address] [place] [phone] Henrique Arugeta M.D. [address] [place] [phone] Scheduled Referrals Name Type Priority Associated Diagnoses Orde r Schedule POST ED VISIT Urology Outpatient Referral Routine Ureterolithiasis Pain Flank Expected: 05/30/2025, Expires: 08/16/2026 documented as of this encounter Procedures Procedure Name Priority Date/Time Associated Diagnosis Comments HC OSMOLALITY ASSAY URINE STAT 05/16/2025 12:16 PM [facility] [facility] [facility] DIPSTICK, U STAT 05/16/2025 12:16 PM [facility] [facility] PH, RANDOM, U STAT 05/16/2025 12:16 PM [facility] [facility] [facility] MICROSCOPIC MANUAL STAT 05/16/2025 12 :16 PM [facility] [facility] [employer] [facility] BACTERIAL CULTURE, AEROBIC + SUSC, URINE STAT 05/16/2025 12:16 PM [facility] [employer] [facility] URINALYSIS WITH MICROSCOPIC STAT 05/16/2025 12:[address] [employer] [facility] [address] ABDOMEN PELVIS WITHOUT IV CONTRAST RAD - Semiurgent (Fast; most ED patients; some inpatients) 05/16/2025 11:17 AM [facility] [employer] [facility] CBC WITHOUT DIFFERENTIAL, B STAT 05/16/2025 10:37 AM [facility] [facility] BASIC METABOLIC PANEL, S/P STAT 05/16/2025 10:37 AM [facility] [facility] documented in this encounter Results * (ABNORMAL) Dipstick, Urine (05/16/2025 12:16 PM [facility] [facility]) Hemoglobin, QL, U Large(A) Negative 05/16/2025 1:05 PM [facility] [employer] [facility] DTL Leukocyte Esterase, U Negative Negative 05/16/2025 1:05 PM [facility] [employer] [facility] DTL Nitrite, U Negative Negative 05/16/2025 1:05 PM [facility] [facility] DTL Ketone, U >=150(A) Negative mg/dL 05/16/2025 1:05 PM [facility] [facility] DTL Glucose, U Negative Negative mg/dL 05/16/2025 1:05 PM [facility] [facility] DTL Urine 05/16/2025 12:1 6 PM [facility] [facility] 05/16/2025 12:57 PM [employer] [facility] us José Miguel Cruz M.D. LAB URINE ORDERABLES Final Result Performing Organization Address City/[facility]/ZIP Co de Phone Number [facility] [address] [place] [address] * Osmolality, Urine (05/16/2025 12:16 PM [facility] [facility]) Osmolality, U 864 150 - 1150 mOsm/kg 05/16/2025 1:24 PM [facility] [employer] [facility] DTL Urine 05/16/2025 12:1 6 PM [facility] [facility] 05/16/2025 12:57 PM [employer] us José Miguel Cruz M.D. LAB URINE ORDERABLES Final Result Performing Organization Address [facility] Co de Phone Number [facility] [address] [place], [place] [phone] [place] [address] [address] [place] [address] * pH, Random, Urine (05/16/2025 12:16 PM [facility] [facility]) pH, Random, U 5.7 4.5 - 8.0 05/16/2025 1:24 PM [facility] [facility] DTL Urine 05/16/2025 12:1 6 PM [employer] [facility] 05/16/2025 12:57 PM [employer] us José Miguel Cruz M.D. LAB URINE ORDERABLES Final Result Performing Organization Address City[facility] Co de Phone Number [facility] [address] [place], [place] [phone] [place] [address] [address] [place] [address] * (ABNORMAL) Microscopic Manual (05/16/2025 12:16 PM [facility] [facility]) Microscopy Abnormal 05/16/2025 1:40 PM [facility] [facility] [facility] DTL RBC >100(A) <3 /hpf 05/16/2025 1:40 PM [facility] [facility] [facility] DTL Dysmorphic RBC <25 <25 % 05/16/2025 1:40 PM [facility] [employer] [facility] DTL WBC None Seen /hpf 05/16/2025 1:40 PM [facility] [employer] [facility] DTL Comment: ----REFERENCE VALUE---- <4 (Males) <11 (Females) Urine 05/16/2025 12:1 6 PM [facility] [facility] 05/16/2025 12:57 PM [facility] José Miguel Cruz M.D. LAB URINE ORDERABLES Final Result Performing Organization Address [facility] Co de Phone Number [facility] [address] [place] [address], [facility] [address] [place] [address] * Bacterial Culture, Aerobic + Susceptibility, Urine (05/16/2025 12:16 PM [facility] [facility]) Urine Culture Organism present <10,000 cfu/mL, susceptibilities not performed per laboratory criteria. 05/17/2025 7:22 AM [facility] [facility] DTL Urine (Urine, Midstream) 05/16/2025 12:16 PM [employer] [facility] 05/16/2025 1:15 PM [facility] [facility] [employer] [facility] Comment:Specimen Source Site : Urine Luke Poole P.A.-C. LAB MICROBIOLOGY - GENERAL ORDERABLES Final Result Performing Organization Address [facility] Co de Phone Number [facility] [address] [place] [address], [facility] [address] [place] [address] * (ABNORMAL) Urinalysis, with Microscopic: Urine, Midstream (05/16/2025 12:16 PM [employer] [facility]) Source Urine, Urine, Midstream 05/16/2025 12:56 PM [facility] [facility] DTL Color, U Sharri(A) 05/16/2025 12:57 PM [facility] [facility] DTL Clarity, U Clear 05/16/2025 12:57 PM [facility] [facility] DTL Protein, U 38(H) <26 mg/dL 05/16/2025 1:39 PM [facility] [facility] DTL Protein/Osmol ality 0.44(H) <0.42 ratio 05/16/2025 1:39 PM [facility] [facility] DTL Predicted 24 HR Protein, U 430(H) <229 mg/24 h 05/16/2025 1:39 PM [facility] [facility] DTL Predicted Range 137-1356 mg/24 h 05/16/2025 1:39 PM [facility] [facility] DTL Urine (Urine, Midstream) 05/16/2025 12:16 PM [employer] 05/16/2025 12:56 PM [employer] Luke Poole P.A.-C. LAB URINE ORDERABLES Final Result [facility] [address] [place] [address], [facility] DTL [facility] [address] [place] [address] * CT Abdomen Pelvis without IV Contrast (05/16/2025 11:17 AM [facility]) Anatomical Region Laterality Modality Abdomen, Pelvis, Abdominal R ST LOS, Abdominal ARZ LOS, Abdominal FLA LOS N/A Computed Tomograp hy, Computed Tomography 05/16/2025 11:1 4 AM [facility] [facility] Impressions 05/16/2025 11:59 AM [facility] [facility] 2 mm obstructing distal left ureteral stone with upstream mild hydroureteronephrosis. Narrative 05/16/2025 11:59 AM [facility] [facility] EXAM: CT ABDOMEN PELVIS WITHOUT IV CONTRAST COMPARISON: None FINDINGS: A 2 mm left ureteral stone is present within the mid/distal left ureter with upstream mild hydroureteronephrosis. Additional punctate calcifications in the left hemipelvis are favored to reflect calcified pelvic phleboliths. No additional left renal stones. No right-sided hydroureteronephrosis. No right renal stones. Scattered mesenteric lymph nodes may be reactive. Normal caliber small bowel. Small volume formed stool in the colon. Normal appendix. Gallbladder sludge. Small hiatal hernia. Remainder negative. Procedure Note Tommy Crawford M.D. - 05/16/2025 EXAM: CT ABDOMEN PELVIS WITHOUT IV CONTRAST COMPARISON: None FINDINGS: A 2 mm left ureteral stone is present within the mid/distal left ureterwith upstream mild hydroureteronephrosis. Additional punctatecalcifications in the left hemipelvis are favored to reflect calcifiedpelvic phleboliths. No additional left renal stones. No right-sided hydroureteronephrosis. No right renal stones. Scattered mesenteric lymph nodes may be reactive. Normal caliber smallbowel. Small volume formed stool in the colon. Normal appendix.Gallbladder sludge. Small hiatal hernia. Remainder negative. IMPRESSION: 2 mm obstructing distal left ureteral stone with upstream mildhydroureteronephrosis. us José Miguel Cruz M.D. IMG CT PROCEDURES Final Re sult * (ABNORMAL) CBC without Differential (05/16/2025 10:37 AM [facility] [facility]) [facility] Hemoglobin 14.9 13.2 - 16.6 g/dL 05/16/2025 10:48 AM [facility] [facility] [facility] STMA Hematocrit 44.9 38.3 - 48.6 % 05/16/2025 10:48 AM [facility] [facility] [facility] ST[facility] Erythrocytes 5.07 4.35 - 5.65 x10(12)/L 05/16/2025 10:48 AM [facility] [facility] ST[facility] MCV 88.6 78.2 - 97.9 fL 05/16/2025 10:48 AM [facility] [facility] ST[facility] RBC Distrib Width 12.6 11.8 - 14.5 % 05/16/2025 10:48 AM [facility] [facility] [facility] Platelet Count 284 135 - 317 x10(9)/L 05/16/2025 10:48 AM [facility] [facility] ST[facility] Leukocytes 15.7(H) 3.4 - 9.6 x10(9)/L 05/16/2025 10:48 AM [facility] ST[facility] Blood (Blood, Venous) 05/16/2025 10:37 AM [facility] [facility] 05/16/2025 10:41 AM [employer] Luke Poole P.A.-C. LAB BLOOD ADD-ON Final Res ult [facility] [address] [place] [address], [facility] [address] [place] [address] * Basic Metabolic Panel (05/16/2025 10:37 AM [facility] [facility]) [facility] Potassium, P 3.8 3.6 - 5.2 mmol/L 05/16/2025 10:56 AM [facility] [facility] [facility] Sodium, P 138 135 - 145 mmol/L 05/16/2025 10:56 AM [facility] [employer] [facility] Chloride, P 102 98 - 107 mmol/L 05/16/2025 10:56 AM [facility] [facility] ST[facility] Bicarbonate, P 23 22 - 29 mmol/L 05/16/2025 10:56 AM [facility] [employer] [facility] [facility] Anion Gap, P 13 7 - 15 05/16/2025 10:56 AM [facility] [employer] [facility] BUN (Blood Urea Nitrogen), P 12 8 - 24 mg/dL 05/16/2025 10:56 AM [facility] [employer] [facility] Creatinine 0.95 0.74 - 1.35 mg/dL 05/16/2025 10:56 AM [facility] [employer] [facility] Estimated GFR (eGFR) >90 >=60 mL/min/BSA 05/16/2025 10:56 AM [facility] [employer] [facility] Comment: Estimated GFR calculated using the 2020 CKD_EPI creatinine equation. Calcium, Total, P 9.4 8.6 - 10.0 mg/dL 05/16/2025 10:56 AM [facility] [employer] [facility] ST[facility] Glucose, P 108 70 - 140 mg/dL 05/16/2025 10:56 AM [facility] [facility] ST[facility] Blood (Blood, Venous) 05/16/2025 10:37 AM [facility] [facility] 05/16/2025 10:41 AM [employer] Luke Poole P.A.-C. LAB BLOOD ADD-ON Final Res ult [facility] [address] [place], [place] [phone] [place] [address] [address] [place] [address] documented in this encounter Visit Diagnoses Diagnosis Ureterolithiasis- Primary Pain Flank documented in this encounter Administered Medications Inactive Administered Medications - up to 3 most recent administrations Medication Order MAR Action Action Date Dose Rate Site acetaminophen tablet 1,000 mg (TylenoL) 1,000 mg, oral, Once, On 05/16/25 at 1334, For 1 dose Given 05/16/2025 1:39 PM [facility] [facility] 1,000 mg HYDROmorphone (PF) injection 0.4 mg (Dilaudid) 0.4 mg, intravenous, Once, On 05/16/25 at 1338, For 1 dose Given 05/16/2025 1:39 PM [facility] [facility] 0.4 mg ketorolac injection 15 mg (ToradoL) 15 mg, intravenous, Once as needed, mild pain or score 1-3 of 10, moderate pain or score 4-6 of 10, severe pain or score 7-10 of 10, renal colic/flank pain, suspicion of kidney stone, Starting on 05/16/25 at 1029, For 1 dose, Adult IV push rate: Over 15 seconds. Peds IV push rate: Over 1 minute. Doses > 15 mg IV/IM are discouraged due to lack of additional analgesic benefit. Given 05/16/2025 10:40 AM [facility] [facility] 15 mg oxyCODONE IR tablet 5 mg (Roxicodone) 5 mg, oral, Once, On 05/16/25 at 1334, For 1 dose Given 05/16/2025 1:39 PM [facility] [facility] 5 mg sodium chloride 0.9 % injection 10 mL 10 mL, intravenous, As needed, line care, Starting on 05/16/25 at 1029, Peripheral Intravenous Catheter and Rapid Infusion Catheter, prior to blood sampling, post blood transfusion or post blood sampling sodium chloride 0.9 % injection 3 mL 3 mL, intravenous, As needed, line care, Starting on 05/16/25 at 1029, Prior to and following infusion and between multiple consecutive infusions: sodium chloride 0.9 % injection sodium chloride 0.9 % injection 3 mL 3 mL, intravenous, Every 12 hours scheduled, First dose on 05/16/25 at 2100, Peripheral Intravenous Catheter and Rapid Infusion Catheter, when no infusion to maintain patency documented in this encounter Active and Recently Administered Medications Times are shown in [facility] [facility]. Scheduled Medication Order 05/14/2025 05/15/2025 05/16/2025 acetaminophen tablet 1,000 mg (TylenoL) (COMPLETED) 1,000 mg, oral, Once, On 05/16/25 at 1334, For 1 dose 1339 (Given - Provid er: Itzel Hernadez R.N.) HYDROmorphone (PF) injection 0.4 mg (Dilaudid) (COMPLETED) 0.4 mg, intravenous, Once, On 05/16/25 at 1338, For 1 dose 1339 (Given - Provid er: Itzel Hernadez, R.N.) oxyCODONE IR tablet 5 mg (Roxicodone) (COMPLETED) 5 mg, oral, Once, On 05/16/25 at 1334, For 1 dose 1339 (Given - Provid er: Itzel Hernadez, R.N.) sodium chloride 0.9 % injection 3 mL 3 mL, intravenous, Every 12 hours scheduled, First dose on 05/16/25 at 2100, Peripheral Intravenous Catheter and Rapid Infusion Catheter, when no infusion to maintain patency PRN Medication Order 05/14/2025 05/15/2025 05/16/2025 ketorolac injection 15 mg (ToradoL) (COMPLETED) 15 mg, intravenous, Once as needed, mild pain or score 1-3 of 10, moderate pain or score 4-6 of 10, severe pain or score 7-10 of 10, renal colic/flank pain, suspicion of kidney stone, Starting on 05/16/25 at 1029, For 1 dose, Adult IV push rate: Over 15 seconds. Peds IV push rate: Over 1 minute. Doses > 15 mg IV/IM are discouraged due to lack of additional analgesic benefit. 1040 (Given - Provid er: Keira Ruiz R.N.) sodium chloride 0.9 % injection 10 mL 10 mL, intravenous, As needed, line care, Starting on 05/16/25 at 1029, Peripheral Intravenous Catheter and Rapid Infusion Catheter, prior to blood sampling, post blood transfusion or post blood sampling sodium chloride 0.9 % injection 3 mL 3 mL, intravenous, As needed, line care, Starting on 05/16/25 at 1029, Prior to and following infusion and between multiple consecutive infusions: sodium chloride 0.9 % injection documented in this encounter Care Teams Varnishing Unit Tool Setter Relationship Specialty Start Date End Date None Reported, Pcp PCP - General Family Medicine 05/16/25 documented as of this encounter
--- OUTSIDE RECORDS SUMMARY | 2025-05-20 13:00 | XMS_ITS | Encounter Summary ---
Author Organization [facility] Address [address] [place] [phone] Care Team Providers Care Web Production Designer Name Role Phone None Reported, Pcp Primary Care Provider Unavail able Reason for Referral * Outpatient (Routine) - Authorized Specialty Diagnoses / Procedures Referred By Jessica gama Referred To Contact Diagnoses Ureterolithiasis Procedures US Kidneys Bilateral with Bladder Henrique Argueta M.D. [address] [place] [phone] Phone: tel: fax: [facility] Referral ID Status Reason Start Date Expiration Date V isits Requested Visits Authorized [id number] Authorized 05/20/2025 08/20/2026 1 1 IL SORTER Reason for Visit * Outpatient (Routine) - Closed Specialty Diagnoses / Procedures Referred By Jessica gama Referred To Contact Urology Diagnoses Ureterolithiasis Pain Flank Luke Poole, P.A.-[place] [address] [place] [phone] Phone: tel: fax: [facility] Referral ID Status Reason Start Date Expiration Date Visits Re quested Visits Authorized [id number] Closed 05/16/2025 11/15/2026 1 1 Encounter Details Date Type Department Care Team (Latest Contact Info) Description 05/20/2025 1:00 PM PENCIL SORTER Comprehensive Visit Department of Urology in [place], [place] [address] [place] [phone] Henrique Mo M.D. [address] [place] [phone] Ureterolithiasis (Primary Dx) Social History Tobacco Use Types Packs/Day Years Used Date Smoking Tobacco: Passive Smo ke Exposure - Never Smoker Smokeless Tobacco: Never Alcohol Use Standard Drinks/Week Comments Never 0 (1 standard drink = 0.6 oz pur e alcohol) Hunger Vital Sign Answer Date Recorded Within the past 12 months, y ou worried that your food would run out before you got the money to buy more. Sometimes true Within the past 12 months, t he food you bought just didn't last and you didn't have money to get more. Sometimes true 05/2025 PRAPARE - Transportation Answer Date Re corded In the past 12 months, has l ack of transportation kept you from medical appointments or from getting medications? No 05/09 In the past 12 months, has l ack of transportation kept you from meetings, work, or from getting things needed for daily living? No 05/19/2025 [facility] Utilities Answer Date Recorded In the past 12 months has e electric, gas, oil, or water company threatened to shut off services in your home? No 05/19/2025 Housing Stability Answer Date Recorded What is your living situation today? I have a [facility] place to live 05/19/2025 Sex and Gender Information Value Date Recorded Sex Assigned at Male 05/19/2025 1:42 PM PENCIL SORTER Legal Sex Male 10:23 AM PENCIL SORTER Gender Identity Male 05/19/2025 1:42 PM PENCIL SORTER Sexual Orientation Bisexual 05/19/2025 1: 42 PM PENCIL SORTER documented as of this encounter Consult Notes * Henrique Argueta M.D. - 05/20/2025 1:00 PM CST SUBJECTIVE The patient was seen today for nephrolithiasis REQUESTING PROVIDER Luke Poole, P.A.-C. REASON FOR CONSULT Nephrolithiasis HISTORY OF PRESENT ILLNESS Mr. Hernandez is a pleasant 19 y.o. year old male who presents for further evaluation and management of nephrolithiasis. The patient reports the 1st stone episode was on 05/16/2025 Presented to the ER with the acute left flank pain and was found to have a distal left ureteral stone. He was discharged on trial of passage. Stone analysis: None Most recent imagin05/16/2025 Prior stone surgeries: None Family history of stone disease: None Current metabolic management for stone disease/supplements includes: None Other urologic history: None Currently the patient denies any flank pain, hematuria, dysuria, fever, chills, or other new constitutional symptoms. REVIEW OF SYSTEMS REVIEW OF SYSTEMS Ten point review of systems was reviewed and was negative except for pertinent positives noted above and in HPI. No Known Allergies Medical History[1] Surgical History[2] OBJECTIVE Lab Results Component Value Date HGB 14.9 05/16/2025 CREATININE 0.95 05/16/[address] Abdomen Pelvis without IV Contrast Result Date: 05/16/2025 Impression: 2 mm obstructing distal left ureteral stone with upstream mild hydroureteronephrosis. PHYSICAL EXAM General: No acute distress, awake, alert, oriented Heart: Regular rate Lungs: Normal effort and respiratory rate Abdomen: Soft, non-tender, non-distended, non-peritonitic ASSESSMENT / PLAN #1 2 mm distal left ureteral stone Patient is a 19 y/o otherwise healthy male presenting with the above stone We reviewed his history, laboratory data, and CT scan showing the above stone We discussed that based on the size he has approximately 90% chance of spontaneous stone passage He has not had any flank pain for the last 2 days so it is possible he may have already passed the stone, he has only intermittently been straining his urine We recommend trial of passage with increased fluid, Flomax, straining his urine. We will plan to obtain ultrasound in a month to assess for resolution of hydronephrosis He knows to reach out to us if he has worsening or new left flank pain, or fevers, chills, nausea, emesis, or hematuria All questions were answered and he was agreeable with that plan Signed by: Henrique Argueta M.D. [1] Past Medical History: Diagnosis Date Stone Kidney Personal History 05/12/2025 [2] No past surgical history on file. IL SORTER documented in this encounter Plan of Treatment Upcoming Encounters Date Type Department Care Team (Late st Contact Info) Description 06/19/2025 3:30 PM PENCIL SORTER Appointment Department of Radiology, [facility], in [place], [place] [address] [place] [phone] Henrique Argueta M.D. [address] [place] [phone] Scheduled Orders Name Type Priority Associated Diagnoses Orde r Schedule US Kidneys Bilateral with Bladder Imaging RAD - Routine (most inpatients and all outpatients) Ureterolithiasis Expected: 06/19/2025, Expires: 08/20/2026 documented as of this encounter Visit Diagnoses Diagnosis Ureterolithiasis- Primary documented in this encounter Care Teams Web Production Designer Relationship Specialty Start Date End Date None Reported, Pcp PCP - General Family Medicine 05/16/25 documented as of this encounter
--- OUTSIDE RECORDS SUMMARY | 2025-05-21 20:35 | XMS_ITS | Encounter Summary ---
Author Organization [facility] Address [address] [place] [address] Care Team Providers Care Waiter/Waitress Captain Name Role Phone None Reported, Pcp Primary Care Provider Unavail able Encounter Details Date Type Department Care Team (Late st Contact Info) Description 05/19/2025 Orders Only Department of Urology in [place], [place] [address] [place] [phone] [facility], Provider, Social History Tobacco Use Types Packs/Day Years [...] things needed for daily living? No 05/19/2025 [facility] Utilities Answer Date Recorded In the past 12 months has th e electric, gas, oil, or water company threatened to shut off services in your home? No 05/19/2025 Housing Stability Answer Date Recorded What is your living situation today? I have a [facility] place to live 05/19/2025 Sex and Gender Information Value Date Recorded Sex Assigned at Male 05/19/2025 1:42 PM LARGE ANIMAL HUSBANDRY TECHNICIAN Legal Sex Male 10:23 AM LARGE ANIMAL HUSBANDRY TECHNICIAN Gender Identity Male 05/19/2025 1:42 PM LARGE ANIMAL HUSBANDRY TECHNICIAN Sexual Orientation Bisexual 05/19/2025 1: 42 PM LARGE ANIMAL HUSBANDRY TECHNICIAN documented as of this encounter Plan of Treatment Upcoming Encounters Date Type Department Care Team (Late st Contact Info) Description 06/19/2025 3:30 PM LARGE ANIMAL HUSBANDRY TECHNICIAN Appointment Department of Radiology, [facility], in [place], [place] [address] [place] [phone] Henrique Argueta M.D. [address] [place] [phone] documented as of this encounter Visit Diagnoses Not on filedocumented in this encounter Care Teams Waiter/Waitress Captain Relationship Specialty Start Date End Date None Reported, Pcp PCP - General Family Medicine 05/16/25 documented as of this encounter
--- OUTSIDE RECORDS SUMMARY | 2025-05-21 20:35 | XMS_ITS | Clinical Summary ---
Author Organization [facility] Address [address] [place] [phone] Care Team Providers Care Pipe Puller Name Role Phone None Reported, Pcp Primary Care Provider Unavail able Source Comments Patient records contain information from all sites at [facility]. For routine questions regarding patient records, call [phone] during business hours, M-F 8:00 AM - 5:00 PM Central Time. Record requests for emergency care only can be directed to [phone] at any time.[facility] Allergies No known active allergies Medications oxyCODONE (Roxicodone) 5 mg immediate release tabletIndicatio ns:Acute Pain Take 1 tablet (5 mg total) by mouth every 6 (six) hours as needed for pain for up to 3 days Indication: Acute Pain. 10 tablet 05/16/2025 5 Active Problems No known active problems Encounters Date Type Department Care Team Description 05/20/2025 1:00 PM ROLLER MAKER Comprehensive Visit Department of Urology in [place], [place] [address] [place] [phone] Henrique Mo M.D. Ureterolithiasis (Primary Dx) 05/19/2025 Orders Only Department of Urology in [place], [place] [address] [place] [phone] [facility] 05/16/2025 10:25 AM ROLLER MAKER - 05/16/2025 3:44 PM ROLLER MAKER Emergency [facility] Emergency Department [address] [place] [phone] Luke Poole, P.A.-C. Ureterolithiasis (Primary Dx); Pain Flank Discharge Disposition: Home or Self Care from Last 3 Months Social History Tobacco Use Types Packs/Day Years Used Date Smoking Tobacco: Passive Smo ke Exposure - Never Smoker Smokeless Tobacco: Never Tobacco Cessation:Counseling Given: Not Answered [...] things needed for daily living? No 05/19/2025 [facility] Utilities Answer Date Recorded In the past 12 months has e electric, gas, oil, or water company threatened to shut off services in your home? No 05/19/2025 Housing Stability Answer Date Recorded What is your living situation today? I have a [facility] place to live 05/19/2025 Sex and Gender Information Value Date Recorded Sex Assigned at Male 05/19/2025 1:42 PM ROLLER MAKER Legal Sex Male 10:23 AM ROLLER MAKER Gender Identity Male 05/19/2025 1:42 PM ROLLER MAKER Sexual Orientation Bisexual 05/19/2025 1: 42 PM ROLLER MAKER Last Filed Vital Signs Vital Sign Reading Time Taken Comments Blood Pressure 150/89 05/16/2025 3:42 PM ROLLER MAKER Pulse 75 05/16/2025 3:42 PM ROLLER MAKER Temperature 36.8 C (98.2 F) 05/16/2025 3:42 PM ROLLER MAKER Respiratory Rate 16 05/16/2025 3:42 PM ROLLER MAKER Oxygen Saturation 98% 05/16/2025 3:42 PM ROLLER MAKER Inhaled Oxygen Concentration - - Weight 131 kg (288 lb 12.8 oz) 05/16/2025 10:27 AM ROLLER MAKER Height 188 cm (6' 2) 05/16/2025 10:27 AM ROLLER MAKER Body Mass Index 37.08 05/16/2025 10:27 AM ROLLER MAKER Plan of Treatment Upcoming Encounters Date Type Department Care Team (Late st Contact Info) Description 06/19/2025 3:30 PM ROLLER MAKER Appointment Department of Radiology, [facility], in [place], [place] [address] [place] [phone] Henrique Argueta M.D. [address] [place] [phone] Health Maintenance Due Date Last Done Comments Hepatitis C Screening 2003 TB Screening during Well Child Visit 2003 1 week Well Child Check-Up 2003 1 month Well Child Check-Up 2003 2 month Well Child Check-Up 01/23/2004 4 month Well Child Check-Up 03/09/2004 9 month Well Child Check-Up 08/09/2004 15 month Well Child Check-Up 02/06/2005 18 month Well Child Check-Up 05/09/2005 2 year Well Child Check-Up 11/06/2005 30 month Well Child Check-Up 05/09/2006 3 year Well Child Check-Up 11/06/2006 Well Child Check-Up Completed in Past Year 11/06/2006 5 year Well Child Check-Up 11/06/2008 6 year Well Child Check-Up 11/06/2009 7 year Well Child Check-Up 11/06/2010 8 year Well Child Check-Up 11/07/2011 10 year Well Child Check-Up 11/06/2013 12 year Well Child Check-Up 11/07/2015 11 year Well Child Check-Up 11/06/2016 12 year Well Child Check-Up 11/06/2017 13 year Well Child Check-Up 11/06/2018 HPV Vaccines (1 - Male 3-dose series) 12/07/2018 14 year Well Child Check-Up 12/04/2019 15 year Well Child Check-Up 11/06/2020 16 year Well Child Check-Up 11/06/2021 17 year Well Child Check-Up 11/06/2022 18 year Well Child Check-Up 11/07/2023 Depression Screening (Annual PHQ-2) 07/09/2024 19 year Well Child Check-Up 11/06/2024 Well Child Check-Up (WCC) 11/06/2024 COVID-19 Vaccine ( season) 2025 01/22/2021 Influenza Vaccine (#1) 2025 3, 06/22/2015, 04/12/2009, Additional history exists DTaP,Tdap,and Td Vaccines (8 - Td or Tdap) 01/07/2034 01/08/2024, 12/21/2015, 01/18/2009, Additional history exists Hepatitis B Vaccines Completed 06/15/2004, 04/14/2004, 02/15/2004 Pneumococcal vaccine (0-49 years) Aged Out 11/28/2004, 09/19/2004, 02/15/2004 No longer eligible based on patient's age to complete this topic IPV Vaccines Completed 01/18/2009, 02/2004, 04/14/2004, Additional history exists Meningococcal Vaccine Aged Out 03/27/2016 No joni tara eligible based on patient's age to complete this topic Procedures Procedure Name Priority Date/Time Associated Diagnosis Comments DIPSTICK, U STAT 05/16/2025 12:16 PM ROLLER MAKER HC OSMOLALITY ASSAY URINE STAT 05/16/2025 12:16 PM ROLLER MAKER PH, RANDOM, U STAT 05/16/2025 12:16 PM ROLLER MAKER MICROSCOPIC MANUAL STAT 05/16/2025 12 :16 PM ROLLER MAKER URINALYSIS WITH MICROSCOPIC STAT 05/16/2025 12:16 PM ROLLER MAKER BACTERIAL CULTURE, AEROBIC + SUSC, URINE STAT 05/16/2025 12:[address] ABDOMEN PELVIS WITHOUT IV CONTRAST RAD - Semiurgent (Fast; most ED patients; some inpatients) 05/16/2025 11:17 AM ROLLER MAKER CBC WITHOUT DIFFERENTIAL, B STAT 05/16/2025 10:37 AM ROLLER MAKER BASIC METABOLIC PANEL, S/P STAT 05/16/2025 10:37 AM ROLLER MAKER from Last 3 Months Results * Osmolality, Urine (05/16/2025 12:16 PM ROLLER MAKER) Osmolality, U 864 150 - 1150 mOsm/kg 05/16/2025 1:24 PM ROLLER MAKER DTL Urine 05/16/2025 12:1 6 PM ROLLER MAKER 05/16/2025 12:57 PM ROLLER MAKER José Miguel Cruz M.D. LAB URINE ORDERABLES Final Result Performing Organization Address City/[facility]/ZIP Co de Phone Number [facility] [address] [place] [address], [facility] [place] [address] * (ABNORMAL) Dipstick, Urine (05/16/2025 12:16 PM ROLLER MAKER) Hemoglobin, QL, U Large(A) Negative 05/16/2025 1:05 PM ROLLER MAKER DTL Leukocyte Esterase, U Negative Negative 05/16/2025 1:05 PM ROLLER MAKER DTL Nitrite, U Negative Negative 05/16/2025 1:05 PM ROLLER MAKER DTL Ketone, U >=150(A) Negative mg/dL 05/16/2025 1:05 PM ROLLER MAKER DTL Glucose, U Negative Negative mg/dL 05/16/2025 1:05 PM ROLLER MAKER DTL Urine 05/16/2025 12:1 6 PM ROLLER MAKER 05/16/2025 12:57 PM ROLLER MAKER José Miguel Cruz M.D. LAB URINE ORDERABLES Final Result Performing Organization Address City/[facility]/ZIP Co de Phone Number [facility] [address] [place] [address], [facility] [address] [place] [address] * pH, Random, Urine (05/16/2025 12:16 PM ROLLER MAKER) pH, Random, U 5.7 4.5 - 8.0 05/16/2025 1:24 PM ROLLER MAKER DTL Urine 05/16/2025 12:1 6 PM ROLLER MAKER 05/16/2025 12:57 PM ROLLER MAKER José Miguel Cruz M.D. LAB URINE ORDERABLES Final Result Performing Organization Address [facility] de Phone Number [facility] [address] [place] [address], [facility] [address] [place] [address] * (ABNORMAL) Microscopic Manual (05/16/2025 12:16 PM ROLLER MAKER) Microscopy Abnormal 05/16/2025 1:40 PM ROLLER MAKER DTL RBC >100(A) <3 /hpf 05/16/2025 1:40 PM ROLLER MAKER DTL Dysmorphic RBC <25 <25 % 05/16/2025 1:40 PM ROLLER MAKER DTL WBC None Seen /hpf 05/16/2025 1:40 PM ROLLER MAKER DTL Comment: ----REFERENCE VALUE---- <4 (Males) <11 (Females) Urine 05/16/2025 12:1 6 PM ROLLER MAKER 05/16/2025 12:57 PM ROLLER MAKER José Miguel Cruz M.D. LAB URINE ORDERABLES Final Result Performing Organization Address [facility] de Phone Number [facility] [address] [place] [address], [facility] [address] [place] [address] * Bacterial Culture, Aerobic + Susceptibility, Urine (05/16/2025 12:16 PM ROLLER MAKER) Urine Culture Organism present <10,000 cfu/mL, susceptibilities not performed per laboratory criteria. 05/17/2025 7:22 AM ROLLER MAKER DTL Urine (Urine, Midstream) 05/16/2025 12:16 PM ROLLER MAKER 05/16/2025 1:15 PM ROLLER MAKER Comment:Specimen Source Site : Urine Luke Poole P.A.-C. LAB MICROBIOLOGY - GENERAL ORDERABLES Final Result Performing Organization Address [facility] Co de Phone Number [facility] [address] [place] [address], [facility] [address] [place] [address] * (ABNORMAL) Urinalysis, with Microscopic: Urine, Midstream (05/16/2025 12:16 PM ROLLER MAKER) Source Urine, Urine, Midstream 05/16/2025 12:56 PM ROLLER MAKER DTL Color, U Sharri(A) 05/16/2025 12:57 PM ROLLER MAKER DTL Clarity, U Clear 05/16/2025 12:57 PM ROLLER MAKER DTL Protein, U 38(H) <26 mg/dL 05/16/2025 1:39 PM ROLLER MAKER DTL Protein/Osmol ality 0.44(H) <0.42 ratio 05/16/2025 1:39 PM ROLLER MAKER DTL Predicted 24 HR Protein, U 430(H) <229 mg/24 h 05/16/2025 1:39 PM ROLLER MAKER DTL Predicted Range 137-1356 mg/24 h 05/16/2025 1:39 PM ROLLER MAKER DTL Urine (Urine, Midstream) 05/16/2025 12:16 PM ROLLER MAKER 05/16/2025 12:56 PM ROLLER MAKER us Luke Poole P.A.-C. LAB URINE ORDERABLES Final Result Performing Organization Address City/[facility] Co de Phone Number [facility] [address] [place] [address], [facility] [address] [place] [address] * CT Abdomen Pelvis without IV Contrast (05/16/2025 11:17 AM ROLLER MAKER) Anatomical Region Laterality Modality Abdomen, Pelvis, Abdominal R ST LOS, Abdominal ARZ LOS, Abdominal FLA LOS N/A Computed Tomograp hy, Computed Tomography 05/16/2025 11:1 4 AM ROLLER MAKER Impressions 05/16/2025 11:59 AM ROLLER MAKER 2 mm obstructing distal left ureteral stone with upstream mild hydroureteronephrosis. Narrative 05/16/2025 11:59 AM ROLLER MAKER EXAM: CT ABDOMEN PELVIS WITHOUT IV CONTRAST [...] distal left ureteral stone with upstream mildhydroureteronephrosis. José Miguel Cruz M.D. IMG CT PROCEDURES Final Re sult * (ABNORMAL) CBC without Differential (05/16/2025 10:37 AM ROLLER MAKER) Hemoglobin 14.9 13.2 - 16.6 g/dL 05/16/2025 10:48 AM ROLLER MAKER STMA Hematocrit 44.9 38.3 - 48.6 % 05/16/2025 10:48 AM ROLLER MAKER STMA Erythrocytes 5.07 4.35 - 5.65 x10(12)/L 05/16/2025 10:48 AM ROLLER MAKER STMA MCV 88.6 78.2 - 97.9 fL 05/16/2025 10:48 AM ROLLER MAKER STMA RBC Distrib Width 12.6 11.8 - 14.5 % 05/16/2025 10:48 AM ROLLER MAKER STMA Platelet Count 284 135 - 317 x10(9)/L 05/16/2025 10:48 AM ROLLER MAKER STMA Leukocytes 15.7(H) 3.4 - 9.6 x10(9)/L 05/16/2025 10:48 AM ROLLER MAKER STMA Blood (Blood, Venous) 05/16/2025 10:37 AM ROLLER MAKER 05/16/2025 10:41 AM ROLLER MAKER Luke Poole P.A.-C. LAB BLOOD ADD-ON Final Res ult [facility] [address] [place] [address], [facility] STMA [facility] [address] [place] [address] * Basic Metabolic Panel (05/16/2025 10:37 AM ROLLER MAKER) Potassium, P 3.8 3.6 - 5.2 mmol/L 05/16/2025 10:56 AM ROLLER MAKER STMA Sodium, P 138 135 - 145 mmol/L 05/16/2025 10:56 AM ROLLER MAKER STMA Chloride, P 102 98 - 107 mmol/L 05/16/2025 10:56 AM ROLLER MAKER STMA Bicarbonate, P 23 22 - 29 mmol/L 05/16/2025 10:56 AM ROLLER MAKER STMA Anion Gap, P 13 7 - 15 05/16/2025 10:56 AM ROLLER MAKER STMA BUN (Blood Urea Nitrogen), P 12 8 - 24 mg/dL 05/16/2025 10:56 AM ROLLER MAKER STMA Creatinine 0.95 0.74 - 1.35 mg/dL 05/16/2025 10:56 AM ROLLER MAKER STMA Estimated GFR (eGFR) >90 >=60 mL/min/BSA 05/16/2025 10:56 AM ROLLER MAKER STMA Comment: Estimated GFR calculated using the 2020 CKD_EPI creatinine equation. Calcium, Total, P 9.4 8.6 - 10.0 mg/dL 05/16/2025 10:56 AM ROLLER MAKER STMA Glucose, P 108 70 - 140 mg/dL 05/16/2025 10:56 AM ROLLER MAKER STMA Blood (Blood, Venous) 05/16/2025 10:37 AM ROLLER MAKER 05/16/2025 10:41 AM ROLLER MAKER us Luke Poole P.A.-C. LAB BLOOD ADD-ON Final Res ult [facility] [address] [place] [address], [place] STMA [facility] [address] [place] [address] from Last 3 Months Insurance [facility] Care Teams Pipe Puller Relationship Specialty Start Date End Date None Reported, Pcp PCP - General Family Medicine 05/16/25
[2025-05-21 21:05] VITALS: BP 153/97; PULSE 98; RESP 16; TEMP 36.7; O2SAT 97; BMI 38.4
--- NOTE | 2025-05-21 21:24 | ED.MALEGU ---
HPI - Male Genitourinary General Date Seen: 05/21/25 Chief complaint: Urogenital Problems, Male Stated complaint: Trouble urinating, has not been able to since 1pm. Time Seen by Provider: 05/21/25 21:24 Source: patient and RN notes reviewed Mode of arrival: ambulatory Limitations: no limitations History of Present Illness HPI Narrative: Russel is a very pleasant 19-year-old diagnosed with history of kidney stone not yet passed to comes to the emergency room with concerns about difficulty with urination since 1300 hours today. Patient notes he can urinate but he has to push hard and it causes pain in the left kidney when this happens. He has not had fever or chills but does note continued nausea when the pain intensifies and is requesting a refill of his Zofran. He did have 1 episode of vomiting prior to coming in. Notes that right now he does have some left flank pain. This has been ongoing and intermittent since he was diagnosed with a kidney stone. Russel is initial ED visit with kidney stone kidney stone was on 05/11/2025 with a 4 x 3 stone in the left proximal ureter. Patient was treated with pain medications Flomax and discharged home. He returned on 05/12 25 with pain that had increased. He was evaluated once again, treated with Dilaudid and discharged with Percocet instead of hydrocodone. He was seen this past SundayMay 17 at [facility]. States that that time that kidney stone had moved so much and that was close to being past so they did not want to do any interventions. Russel denies any fevers or chills. He has no past history of UTI. Related Data Previous Rx's ?Medication ?Instructions ?Recorded tamsulosin 0.4 mg capsule (Flomax) 0.4 mg PO QHS #10 caps 05/11/25 oxycodone-acetaminophen 5 mg-325 1 - 2 tab PO Q4-6H PRN pain #20 05/12/25 mg tablet (Percocet) tabs ondansetron 4 mg disintegrating 4 mg PO Q8H PRN nausea and 05/21/25 tablet vomiting #10 tabs oxycodone 5 mg capsule 5 mg PO Q4-6H PRN pain #10 caps 05/21/25 Allergies Allergy/AdvReac Type Severity Reaction Status Date / Time No Known Drug Allergies Allergy Verified 01/08/24 02:59 Review of Systems Status of ROS: Reports: 10 or more systems reviewed and unremarkable except as noted in History and below Const: Denies: fever, chills or fatigue Eyes: Denies: change in vision ENMT: Denies: neck pain or nasal congestion Cardio: Denies: chest pain, lightheadedness or shortness of breath with exertion Resp: Denies: shortness of breath or cough GI: Reports: nausea and vomiting; Denies: abdominal pain or diarrhea Musculo: Denies: neck pain Integ/Breast: Denies: rash Neuro: Denies: headache Endo: Denies: fatigue Exam Narrative: Exam Narrative: Alert and oriented. Nontoxic in appearance. Does appear fatigued. External ears eyes nose clear. Heart with regular rate and rhythm and lungs are clear. Abdomen soft nontender. Moving all extremities. Const: Vital Signs, click to edit/add: Vital Signs - 24 hr 05/21/25 21:05 Temperature 98.1 F Pulse Rate [Pulse Oximeter] 98 Respiratory Rate 16 Blood Pressure [Ri ght Upper Arm] 153/97 H Pulse Oximetry 97 Oxygen Delivery Me thod Room Air Documenting provider has reviewed patient's vital signs: yes Course Course ED Course: Differential diagnosis includes but is not limited to UTI, urinary retention secondary to narcotic use, anxiety. This time patient has no fever and does not describe such. Does not appear to be toxic or septic. Patient was able to urinate a large amount upon arrival. Currently awaiting the urinalysis. Will also order bladder scan. Recent CT 4 days ago by [facility]. Reevaluation(s) Reevaluation #1: Bladder scan shows minimal urine. No evidence of urinary retention. Urinalysis without evidence of UTI. Does show concentrated urine however. Patient is given Zofran and has some improvement of his nausea. Vital Signs Vital signs: Initial Vital Signs Temperature 98.1 F 05/21/25 21:05 Temperature Source Temporal Artery Scan 05/21/25 21:05 Pulse Rate 98 05/21/25 21:05 Respiratory Rate 16 05/21/25 21:05 Blood Pressure 153/97 H 05/21/25 21:05 Blood Pressure Mean 115 H 05/21/25 21:05 Blood Pressure Position Sitting 05/21/25 21:05 Pulse Oximetry 97 05/21/25 21:05 Oxygen Delivery Method Room Air 05/21/25 21:05 Vital Signs Temperature 98.1 F 05/21/25 21:05 Pulse Rate 98 05/21/25 21:05 Respiratory Rate 16 05/21/25 21:05 Blood Pressure 153/97 H 05/21/25 21:05 Pulse Oximetry 97 05/21/25 21:05 Oxygen Delivery Method Room Air 05/21/25 21:05 Temperature 98.1 F 05/21/25 21:05 Pulse Rate 98 05/21/25 21:05 Respiratory Rate 16 05/21/25 21:05 Blood Pressure 153/97 H 05/21/25 21:05 Pulse Oximetry 97 05/21/25 21:05 Oxygen Delivery Method Room Air 05/21/25 21:05 Medications Administered Medications: Discontinued Medications Generic Name Dose Route Start Last Admin Trade Name Dayday PRN Reason Stop Dose Admin Ondansetron HCl 4 mg 05/21/25 21:33 05/21/25 21:37 Ondansetron Odt 4 Mg Tab PO 05/21/25 21:34 4 mg ONCE ONE Administration MDM - Male Genitourinary MDM Narrative Medical decision making narrative: 1. Difficulty with urination-no evidence of urinary retention. No evidence of UTI fortunately. We will send the urine for culture however. 2. Flank pain-patient really did not complain of significant pain upon arrival. Had taken some oxycodone at approximately 2000 hours. During our discussion regarding discharge he states he would like some pain medication. I suspect that his stone is at the [facility] at this time. Likely causing a lot of his symptoms. Will give him 8 mg of IM morphine as he does not have an IV in any is getting ready to go. He seemed to receptive to that plan. He also asked about a refill of his oxycodone. He had received 10 oxycodone tablets 5 mg each on SundayMay 17 at [place]. I did state that we tend to not refill medications for similar problems but I will make an exception tonight but any further narcotic pain medications needs to go through his primary MD. oxycodone 5 mg Q 4-6 hours p.r.n. 10. With no refills. Sent to his pharmacy. 3. Nausea and vomiting-patient had Zofran 4 mg ODT sent to pharmacy. One tablet q.8 hours p.r.n. 10 with 1 refill. 4. Disposition-home at this time. Seek medical attention for fever, worsening symptoms and as needed. Did attempt to find results from recent visit at [place]. They were requesting not early a signature but would not be able to give us any results until tomorrow morning. Thus we did a basic panel here which showed normal electrolytes, a creatinine of 1.3 which is slightly increased from previous value. Combined with concentrated urine I have asked him to increase his fluid intake. Medical Records Attestation: I reviewed the patient's medical records. Medical records narrative: 05-11 and 05-12 visits. Lab Data Attestation: I reviewed the patient's lab results. Lab results narrative: Creatinine increased from 1.0-1.3. Labs: Lab Results 05/21/25 05/21/25 Range/Units 21:20 22:02 Sodium 139 (135-149) mmol/L Potassium 4.4 (3.6-5.1) mmol/L Chloride 101 (96-114) mmol/L Carbon Dioxide 25 (20-32) mmol/L Anion Gap 13 (7-15) mEq/L BUN 22 (5-24) mg/dL Creatinine 1.3 (0.5-1.5) mg/dL Estimated Creat Clear 104.51 Estimated GFR 80 ml/min Glucose 100 (60-115) mg/dL Calcium 9.3 (8.4-10.6) mg/dL Urine Color Yellow (Yellow) Urine Appearance Turbid A (Clear) Urine pH 5.5 (5.0-8.5) Ur Specific [place] >= 1.030 (1.000-1.030) Urine Protein 1+ A (Negative) Urine Glucose (UA) Negative (Negative) Urine Ketones Negative (Negative) Urine Blood 3+ A (Negative) Urine Nitrite Negative (Negative) Urine Bilirubin Negative (Negative) Urine Urobilinogen 0.2 (0.2-1.0) Ur Leukocyte Esterase Negative (Negative) Urine RBC 5-10 A (0-2) Urine WBC 2-5 (0-5) Ur Squamous Epith Cells Few (None-Few) Urine Bacteria Few A (None) Fine Granular Casts Few A (None) Discharge Plan Discharge Clinical Impression: Left nephrolithiasis, Colic, ureteral Vomiting Qualifiers: Vomiting type: unspecified Nausea presence: with nausea Qualified Code(s): R11.2 - Nausea with vomiting, unspecified Patient Disposition: Home, Self-Care Condition: Improved Additional Instructions: Your creatinine tonight was technically within normal limits but is a little bit higher than your previous visit. Combine with the concentration of your urine I am concerned about your fluid intake. Please increase water intake but not only that but use Gatorade or Powerade as well. No evidence of bladder infection . I did send Nisreen to your pharmacy. Prescriptions: New ondansetron 4 mg tablet,disintegrating 4 mg PO Q8H PRN (Reason: nausea and vomiting) Qty: 10 1RF oxycodone 5 mg capsule 5 mg PO Q4-6H PRN (Reason: pain) Qty: 10 0RF No Action tamsulosin [Flomax] 0.4 mg capsule 0.4 mg PO QHS Qty: 10 1RF oxycodone-acetaminophen [Percocet] 5-325 mg tablet 1 - 2 tab PO Q4-6H PRN (Reason: pain) Qty: 20 0RF Follow Up/Referrals: Provider,Not a Local [Primary Care Provider, Family Practice] Stand Alone Forms: MyHealth Info Instructions
[2025-05-21 21:28] LABS: Appearance Urine Turbid (Clear)
[2025-05-21] MEDS: ONDANSETRON ODT 4 MG TAB PO (21:37)
[2025-05-21 22:34] LABS: Chloride* 101 mmol/L (96-114); Potassium* 4.4 mmol/L (3.6-5.1); Sodium* 139 mmol/L (135-149)
[2025-05-21 22:37] LABS: Blood Urea Nitrogen* 22 mg/dL (5-24); Creatinine* 1.3 mg/dL (0.5-1.5); Est. Creatinine Clearance* 104.51; Estimated Glomerular Filt Rate 80 ml/min
[2025-05-21 22:38] LABS: Anion Gap 13 mEq/L (7-15); Calcium* 9.3 mg/dL (8.4-10.6); Carbon Dioxide* 25 mmol/L (20-32); Glucose* 100 mg/dL (60-115)
[2025-05-21] MEDS: MORPHINE 4 MG/ML INJ 8 MG IM (22:58)
== END 2025-05-21 23:04 | disposition home or self-care (01) ==
PROVIDERS: Emergency Provider Family Medicine
DX: N20.2 Calculus of kidney with calculus of ureter (principal); R11.2 Nausea with vomiting, unspecified
CPT/HCPCS: 36415; 80048; 81001; 87086; 96372; 99284; A9270; J2270